=== PATIENT | female | born 1985 | race Hispanic/Latino ===

== ENCOUNTER 2018-09-14 14:02 | Emergency (ER) | payer SELFPAY ==
--- NOTE | 2018-09-14 15:05 | RAD ---
TWO VIEWS OF THE CHEST: COMPARISON: 06/16/2009. HISTORY: Productive cough and subjective fever. FINDINGS: Two views of the chest show normal sized cardiomediastinal silhouette. There is no evidence of consol idation, mass, or pleural effusion. The bones are unremarkable. IMPRESSION: No evidence of acute cardiopulmonary disease. POS: [facility]
== END 2018-09-14 16:02 | disposition home or self-care (01) ==
LOC: ERS 14:02
DX: J10.1 Influenza due to other identified influenza virus with other respiratory manifestations (principal)
CPT/HCPCS: 71046; 87804